=== PATIENT | female | born 2000 | race Caucasian/White ===

== ENCOUNTER 2019-11-02 11:54 | Emergency (ER) | payer BC, MEDICAID ==
[2019-11-02] MEDS ORDERED: SODIUM CHLORIDE 0.9% 1000ML 1,000 ML IVS ONE (12:53)
--- NOTE | 2019-11-02 12:59 | ED.PDOC ---
History of Present Illness - General Chief Complaint: Syncope/Near Syncope Stated Complaint: Syncopal episode,V/D Time Seen by Provider: 11/02/19 12:16 Source: patient, family Exam Limitations: no limitations - History of Present Illness Initial Comments: PT HAVING VOMITING AND DIARRHEA RECENTLY; CALLED HER OB WHO RX'D ZOFRAN. SHE WAS IN LINE AT [facility] TO BED CONTROL SPECIALIST RX WHEN SHE BECAME LIGHT-HEADED. PT WAS FEELING HOT AND COLD AND THEN FAINTED. FRIENDS WERE WITH HER AND SHE WAS NOT INJURED. SHE FELT BACK TO AFTER SHE FAINTED - NO POST-ICTAL STATE AND NO SZ ACTIVITY WITNESSED. PT REPORTS POOR PO INTAKE. NO VOIDING TODAY OR LAST NIGHT. DENIES N/V/D AT PRESENT. Severity: moderate Improving Factors: nothing Worsening Factors: nothing Associated Symptoms: syncope Allergies/Adverse Reactions: Allergies NO KNOWN ALLERGY Allergy (Verified 07/23/16 01:03) Home Medications: Ambulatory Orders Vit W/ Ferrous Fumara [] 1 tab PO DAILY 11/02/19 Review of Systems - Review of Systems Constitutional: States: no symptoms reported. Denies: chills, fever EENTM: States: no symptoms reported. Denies: eye pain, blurred vision, ear pain, nose pain, throat pain, mouth pain Respiratory: States: no symptoms reported. Denies: cough, short of breath Cardiology: States: no symptoms reported. Denies: chest pain, palpitations Gastrointestinal/Abdominal: States: no symptoms reported. Denies: abdominal pain, diarrhea, nausea, vomiting Genitourinary: States: no symptoms reported. Denies: discharge, dysuria Musculoskeletal: Denies: back pain, joint pain, muscle pain, neck pain Skin: States: no symptoms reported. Denies: lesions, lumps, rash Neurological: Denies: headache, numbness, tingling, weakness Endocrine: States: no symptoms reported Hematologic/Lymphatic: States: no symptoms reported All other Systems: Reviewed and Negative Past Medical History (General) - Patient Medical History Hx Stroke: No Hx Congestive Heart Failure: No Hx Diabetes: No - Vaccination History Hx Influenza Vaccination: No - Social History Hx Tobacco Use: Yes - Female History Patient is a Female of Child Bearing Age (10 -59 yrs old): Yes Patient : Yes Expected Date of Delivery:: 04[birth year]09[birth year]20 Hx Gestational Age: 14 Family Medical History - Family History Mother Family History: Unknown Physical Exam - Physical Exam General Appearance: Alert, No apparent distress Eye Exam: bilateral normal Ears, Nose, Throat: hearing grossly normal, normal ENT inspection, normal pharynx Neck: non-tender, full range of motion, supple, normal inspection Respiratory: chest non-tender, lungs clear, normal breath sounds Cardiovascular/Chest: normal peripheral pulses, regular rate, rhythm, no murmur Peripheral Pulses: radial,right: 2+, radial,left: 2+ Gastrointestinal/Abdominal: normal bowel sounds, non tender, soft, no organomegaly, no pulsatile mass, other - GRAVID UTERUS Back Exam: normal inspection, no CVA tenderness, no vertebral tenderness Extremity: normal range of motion, non-tender, normal inspection 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 Skin Exam: normal color, warm/dry Lymphatic: no adenopathy Progress - Progress Progress: 11/02/19 14:24 EKG - SINUS TACHYCARDIA. INVERTED T-WAVES IN 5 LEADS, SO I WILL HAVE PT F/U WITH HER REGULAR DR, BUT THERE ARE NO ACUTE S-T CHANGES (NO CONCERNS FOR ND). CBC - ELEV NEUTS CMP - UNREMARKABLE DOPPLER OF FETUS NL AT 180 AND WAS EASY TO FIND. PT REQUESTS TO BE TESTED FOR INFLUENZA WHICH IS APPROPRIATE SHE HAS A 2 YO AT HOME, SO WE WILL DO THIS NOW. 11/02/19 14:35 THE N/V/D FROM GASTROENTERITIS RESULTED IN DEHYDRATION, OLIGURIA, SYNCOPE, AND MILD TACHYCARDIA. PUSH FLUIDS. 11/02/19 15:08 RAPID FLU NEG. SAFE FOR DC TO HOME WITH F/U. Departure - Departure Clinical Impression: Dehydration during , Gastroenteritis, Oliguria, Tachycardia Syncope Qualifiers: Syncope type: unspecified Qualified Code(s): R55 - Syncope and collapse Nausea and vomiting Qualifiers: Vomiting type: unspecified Vomiting Intractability: non-intractable Qualified Code(s): R11.2 - Nausea with vomiting, unspecified Diarrhea Qualifiers: Diarrhea type: presumed infectious Qualified Code(s): R19.7 - Diarrhea, unspecified Disposition: Discharge to Home or Self Care Condition: Good Departure Forms: ED Discharge - Pt. Copy, Patient Portal Self Enrollment Instructions: DI for Syncope in Adults (Fainting) Diet: resume usual diet Activity: increase activity as tolerated Referrals: Israel Mas III, MD [Primary Care Provider] - 1 Week Home Medications: Ambulatory Orders Vit W/ Ferrous Fumara [] 1 tab PO DAILY 11/02/19 Additional Instructions: Please drink at least 64 oz per day of water to stay hydrated. The Zofran prescription your OB gave you will help with the nausea and vomiting.
[2019-11-02 15:21] VITALS: BP 101/59; TEMP 100.4; O2SAT 99
== END 2019-11-02 15:21 | disposition home or self-care (01) ==
LOC: ER 11:54
DX: O99.612 Diseases of the digestive system complicating pregnancy, second trimester (principal); K52.9 Noninfective gastroenteritis and colitis, unspecified; O99.89 Other specified diseases and conditions complicating pregnancy, childbirth and the puerperium; R55 Syncope and collapse; O99.282 Endocrine, nutritional and metabolic diseases complicating pregnancy, second trimester; E86.0 Dehydration; O99.412 Diseases of the circulatory system complicating pregnancy, second trimester; R00.0 Tachycardia, unspecified; O26.832 Pregnancy related renal disease, second trimester; R34 Anuria and oliguria; Z87.891 Personal history of nicotine dependence; Z3A.16 16 weeks gestation of pregnancy
CPT/HCPCS: 80053; 85025; 87502; 93005; J7030